=== PATIENT | female | born 2000 | race Asian ===

== ENCOUNTER 2025-05-06 19:15 | Emergency (ER) | payer OTHER ==
[2025-05-06 19:28] VITALS: BMI 19.3
[2025-05-06] MEDS ORDERED: ACETAMINOPHEN INJECTION 100 ML ONE (19:59)
[2025-05-06] MEDS: ACETAMINOPHEN 1000 MG/100 ML BAG IVPB ONE (20:03)
[2025-05-06] MEDS: SODIUM CHLORIDE 0.9% 500 ML INFUS.BAG IV ONE (20:03)
[2025-05-06 20:20] LABS: ABSOLUTE IMMATURE GRANULOCYTES 0.02 x10^3/uL (0.0-0.031); BASOPHILS # 0.04 x10^3/uL (0.01-0.08); EOSINOPHIL % 1.3 % (0.7-5.8); EOSINOPHILS # 0.08 x10^3/uL (0.04-0.36); HEMATOCRIT 37.6 % (34.1-44.9); MCHC 31.9 g/dl (32.2-35.5); MEAN PLT VOLUME 11.3 fl (9.4-12.3); MONOCYTE # 0.39 x10^3/uL (0.24-0.86); MONOCYTE % 6.2 % (4.7-12.5); PLATELET COUNT 170 x10^3/uL (182-369); RDW 12.9 % (12.1-16.5)
[2025-05-06 20:47] LABS: POTASSIUM 4.1 mmol/L (3.5-5.1)
[2025-05-06 20:49] LABS: ALBUMIN 4.3 g/dl (3.4-5.0); CALCIUM 9.8 mg/dL (8.5-10.1)
[2025-05-06 20:50] LABS: BLOOD UREA NITROGEN 9.9 mg/dL (7-18)
[2025-05-06 20:53] LABS: CREATININE 0.7 mg/dL (0.55-1.3)
[2025-05-06 20:54] LABS: BILIRUBIN,TOTAL 0.6 mg/dL (0.2-1); TOT PROT 7.6 g/dl (6.4-8.2)
[2025-05-06 22:14] LABS: PH,URINE 5.5 (5.0-8.0); URINE APPEARANCE CLOUDY; URINE BILIRUBIN NEGATIVE (NEGATIVE); URINE COLOR YELLOW; URINE GLUCOSE (UA) NEGATIVE (NEGATIVE); URINE KETONE TRACE (NEGATIVE); URINE LEUK ESTERASE NEGATIVE (NEGATIVE); URINE NITRITE NEGATIVE (NEGATIVE); URINE PROTEIN NEGATIVE (NEGATIVE); URINE UROBILINOGEN 0.2 mg/dL (0.2-1.0)
[2025-05-06 22:33] VITALS: TEMP 97.8
[2025-05-06] MEDS ORDERED: KETOROLAC TROMETHAMINE 15 MG/ML VIAL ONE (22:36)
[2025-05-06] MEDS: KETOROLAC TROMETHAMINE 15 MG/ML VIAL IVPUSH ONE (22:37)
[2025-05-07 00:41] VITALS: BP 106/76; PULSE 78; RESP 19
== END 2025-05-07 00:41 | disposition home or self-care (01) ==
LOC: JER 19:15
PROC: 3E033NZ Introduction of Analgesics, Hypnotics, Sedatives into Peripheral Vein, Percutaneous Approach (ICD-10-PCS; principal; 2025-05-06)
PROC: 3E0333Z Introduction of Anti-inflammatory into Peripheral Vein, Percutaneous Approach (ICD-10-PCS; 2025-05-06)
DX: R10.32 Left lower quadrant pain (principal)
CPT/HCPCS: 36415; 74177-TC; 76856-TC; 80053; 81003; 84703; 85025; 86850; 86900; 86901; 87086; 99285-25